=== PATIENT | male | born 1930 | race Caucasian/White ===

== ENCOUNTER 2016-07-10 11:41 | Emergency (ER) | payer MEDICARE, OTHER ==
[~2016-07-10] VITALS: Wt 89.1 kg
[~2016-07-10 11:41] MED LIST: ALBU18HF INHALATION; APIX2.5T PO; ATOR10TA65 PO; CARV12.579 PO; DIGO125T PO; FURO20TA3 PO; ISOS30TA5 PO; NIT4 SL; OMEP40CA6 PO; OXYB5TAB22 PO; SPIR25TA PO
[2016-07-10] MEDS ORDERED: SOD CHLORIDE 0.9% 1,000 ML IV STA (11:59)
[2016-07-10] MEDS ORDERED: ONDANSETRON 4 MG INJ IV STA (11:59)
[2016-07-10] MEDS ORDERED: morphine 4 MG/ML VIAL IV STA (11:59)
[2016-07-10 12:11] LABS: ADD SCAN DIFF NO
[2016-07-10 12:22] LABS: ABNORMAL IP MESSAGE 1; ALBUMIN 4.1 g/dl (3.3-4.9); BASOPHILS % 0.3 % (0.0-2.0); CHLORIDE 99 mmol/L (97-110); EOSINOPHILS # 0.1 10^3/ul (0.0-0.5); EOSINOPHILS % 0.9 % (0.0-7.0); HEMATOCRIT 39.9 % (42.0-52.0); HEMOGLOBIN 12.9 g/dl (14.0-18.0); LYMPHOCYTES % 51.2 % (15.0-51.0); MEAN CORPUSCULAR HEMOGLOBIN 27.6 pg (29.0-33.0); MEAN CORPUSCULAR HGB CONC 32.3 g/dl (32.0-37.0); MEAN CORPUSCULAR VOLUME 85.4 fl (82.0-101.0); MONOCYTE # 0.7 10^3/ul (0.3-0.9); MONOCYTES % 5.6 % (0.0-11.0); NEUTROPHIL # 4.9 10^3/ul (1.6-7.5); NEUTROPHILS % 41.7 % (39.0-77.0); PLATELET COUNT 155 10^3/UL (140-415); RED BLOOD COUNT 4.67 10^6/ul (4.70-6.10); RED CELL DISTRIBUTION WIDTH 14.5 % (11.5-14.5); WHITE BLOOD COUNT 11.7 10^3/ul (4.8-10.8)
[2016-07-10 12:23] LABS: POTASSIUM 4.4 mmol/L (3.5-5.1); SODIUM 137 mmol/L (135-144)
[2016-07-10 12:25] LABS: ALANINE AMINOTRANSFERASE 29 IU/L (13-69); ALBUMIN/GLOBULIN RATIO 1.13; ALKALINE PHOSPHATASE 106 IU/L (42-121); ANION GAP 17 (8-16); ASPARTATE AMINO TRANSFERASE 25 IU/L (15-46); BILIRUBIN,INDIRECT 0.4 mg/dl (0-1.1); BILIRUBIN,TOTAL 0.4 mg/dl (0.2-1.3); BLOOD UREA NITROGEN 34 mg/dl (7-20); CALCIUM 8.6 mg/dl (8.4-10.2); CARBON DIOXIDE 25 mmol/L (21-31); CREATININE 0.98 mg/dl (0.61-1.24); GLUCOSE 103 mg/dl (70-220); TOTAL PROTEIN 7.7 g/dl (6.1-8.1)
[2016-07-10 12:38] LABS: TROPONIN-I < 0.012 ng/ml (0.00-0.12)
[2016-07-10] MEDS ORDERED: BENA5TAB2 PO (12:47)
[2016-07-10 13:10] LABS: ADD UMIC YES; URINE BILIRUBIN (Dip) NEGATIVE (NEGATIVE); URINE BLOOD (Dip) TRACE (NEGATIVE); URINE COLOR LT. YELLOW (YELLOW); URINE GLUCOSE (Dip) NEGATIVE (NEGATIVE); URINE KETONES (Dip) NEGATIVE (NEGATIVE); URINE LEUKOCYTE ESTERASE (Dip) NEGATIVE (NEGATIVE); URINE NITRITE (Dip) NEGATIVE (NEGATIVE); URINE TOTAL PROTEIN (Dip) NEGATIVE (NEGATIVE); URINE UROBILINOGEN (Dip) 0.2 E.U./dL (0.1-1.0)
--- NOTE | 2016-07-10 13:30 | RADRPT ---
PROCEDURE: CT Cervical Spine. CLINICAL INDICATION: Headache and dizziness. TECHNIQUE: A CT of the cervical spine was performed on a GE [employer] 64-slice CT scanner utilizi ng high-resolution axial imaging from the skull base through the cervical thoracic junction. Sagitt al, coronal, and multiplanar reformatted images were made. CTD I: 27.72 mGy and DLP: 557.57 mGy-cm One or more of the following dose reduction techniques were used: Automated exposure control. Adjustment of the mA and/or kV according to patient size. Use of iterative reconstruction technique. COMPARISON: None FINDINGS: There is straightening of the cervical lordosis. There is a stepwise trace retrolisthesis of C4 on C5, C5 on C6, and C6 on C7 likely on degenerative basis. There is no acute fracture or traumatic mal alignment. The posterior elements are normally aligned. The surrounding soft tissues are normal in appearance. There are mild to moderate degenerative changes at the atlantoaxial joint. C2-C3: The disk height is maintained. There is prominent right-sided uncovertebral spurring with s evere right and mild to moderate left facet arthropathy. The combination of the finding result in m oderate right neural foraminal stenosis. The central canal and left neural foramen are adequately p atent. C3-C4: There is mild disk height loss. Disk osteophyte complex, prominent left-sided uncovertebral spurring, severe left and moderate right facet arthropathy are seen at this level. There is modera te left neural foraminal stenosis. There is mild central canal and right neural foraminal stenosis. C4-C5: There is moderate disk height loss with discogenic endplate changes. Disk osteophyte complex , prominent right-sided uncovertebral spurring and moderate facet arthropathy are seen at this level . There is moderate to severe right and minimal left neural foraminal stenosis. There is mild to m oderate central canal stenosis. C5-C6: There is moderate to severe disk height loss with discogenic endplate changes. Disk osteoph yte complex, prominent uncovertebral spurring left being more prominent with mild facet arthropathy are seen at this level. There is severe left and moderate to severe right neural foraminal stenosis . There is moderate central canal stenosis. C6-C7: There is moderate to severe disk height loss with discogenic endplate changes. Disk osteoph yte complex, prominent uncovertebral spurring with mild to moderate facet arthropathy are seen at th is level. There is severe right and moderate to severe left neural foraminal stenosis. There is mi ld central canal stenosis. C7-T1: The disk height is maintained. The central canal and bilateral neural foramina are adequate ly patent. IMPRESSION: 1. No acute fracture or traumatic malalignment. 2. Multilevel cervical spondylosis at C4-C5 through C6-C7 with associated moderate to severe bilate ral neural foraminal stenosis, as detailed above. 3. Moderate central canal stenosis at C5-C6. 4. Multilevel stepwise mild retrolisthesis at C4-C5 through C6-C7 likely on degenerative basis. RPTAT: BB .Vicki Sloan MD, MD Date Time Electronically viewed and signed by .Vicki Sloan MD, on 07/10/2016 13:30 .O/
--- NOTE | 2016-07-10 13:33 | RADRPT ---
PROCEDURE: CT Brain without contrast. CLINICAL INDICATION: Dizziness and head pressure. TECHNIQUE: A CT of the brain was performed on a multidetector CT scanner utilizing axial sections from the skull base through the vertex without contrast. Images were reviewed on a high-resolution [employer] workstation. Exam CTDI = 49.70 mGy and the DLP = 715.55 mGy-cm. One or more of the following dose reduction techniques were used: Automated exposure control Adjustment of the mA and/or kV according to patient size. Use of iterative reconstruction technique. COMPARISON: Head CT 10/18/2014 FINDINGS: There is age appropriate mild generalized volume loss. There is no evidence of intracranial hemorrh age, mass effect or midline shift. No abnormal intra-axial or extra-axial fluid collections are see n. The density of the brain is normal and the silva/white matter differentiation is well preserved. Mild patchy diffuse deep white matter microangiopathic ischemic change is seen. The osseous stru ctures and visualized paranasal sinuses are unremarkable. Vascular calcifications are identified. IMPRESSION: 1. No intracranial hemorrhage, mass effect or midline shift. 2. Mild microangiopathic ischemic change. 3. Intracranial atherosclerosis. RPTAT: BB .Vicki Sloan MD, MD Date Time Electronically viewed and signed by .Vicki Sloan MD, on 07/10/2016 13:33 .O/
[2016-07-10 13:38] LABS: BACTERIA,URINE FEW; URINE RBCS 0-2 /HPF (0)
[2016-07-10 13:58] VITALS: BP 106/74; PULSE 65; RESP 16; TEMP 98.8
[2016-07-10] MEDS ORDERED: ONDA4TAB14 PO (14:03)
--- NOTE | 2016-07-10 14:05 | ERD ---
ER Documentation Chief Complaint Date/Time DATE: 07/10/16 TIME: 14:05 Chief Complaint ABDOMINAL PAIN MILD WITH NAUSEA AND CONSITPATION FOR 3 DAYS. ACID REFLUX HPI Patient is an 86-year-old male with coronary disease and hypertension who presents with headache and neck pain. He had headache and neck pain and bilateral hand stiffness. He also felt dizzy. He has had the symptoms for the past 3 days. He tried Tylenol which helps. He has no fevers. Upon review of old medical records this is the patient's fifth visit to the ER since 2006. He does not remember the name of his primary doctor. ROS All systems reviewed and are negative except as per history of present illness. Medications Home Meds Active Scripts Ondansetron (Ondansetron Odt) 4 Mg Tab.rapdis, 4 MG PO Q6H Y for NAUSEA AND/OR VOMITING, #30 TAB Prov:WILIAN WIGGINS MD 07/10/16 Reported Medications Benazepril Hcl* (Benazepril Hcl*) 5 Mg Tablet, 5 MG PO DAILY, #30 TAB 07/10/16 Nitroglycerin* (Nitrostat*) 0.4 Mg Tab.subl, 0.4 MG SL Q5MIN Y for CHEST PAIN, BOTTLE 09/06/15 Omeprazole* (Omeprazole*) 40 Mg Capsule.dr, 40 MG PO DAILY, CAP 09/06/15 Albuterol Sulfate* (Ventolin HFA*) 18 Gm Hfa.aer.ad, 2 PUFF INHALATION Q4H, #1 INHALER 09/06/15 Oxybutynin Chloride* (Ditropan* XL) 5 Mg Tabsr, 5 MG PO DAILY, TAB.SA 09/04/15 Isosorbide Mononitrate* (Isosorbide Mononitrate*) 30 Mg Tab.er.24h, 30 MG PO DAILY, TAB 09/04/15 Digoxin* (Digoxin*) 0.125 Mg Tab, 0.125 MG PO DAILY, #30 TAB 09/04/15 Carvedilol* (Carvedilol*) 12.5 Mg Tablet, 12.5 MG PO DAILY, #60 TAB 09/04/15 Apixaban* (Eliquis*) 2.5 Mg Tablet, 2.5 MG PO BID, TAB 02/20/15 Spironolactone* (Aldactone*) 25 Mg Tablet, 25 MG PO DAILY, TAB 10/18/14 Furosemide* (Furosemide*) 20 Mg Tablet, 20 MG PO BID, TAB 10/18/14 Atorvastatin Calcium (Atorvastatin Calcium) 10 Mg Tab, 10 MG PO HS, TAB 10/18/14 Allergies Allergies: Coded Allergies: No Known Drug Allergy (Verified Allergy, Mild, 09/04/15) PMhx/Soc History of Surgery: Yes (prostate, bilateral knee and nose surgery) Anesthesia Reaction: No Hx Neurological Disorder: No Hx Respiratory Disorders: Yes (asthma) Hx Cardiac Disorders: Yes (htn, afib, chf) Hx Psychiatric Problems: No Hx Miscellaneous Medical Probl: Yes (anemia, nasal ca) Hx Alcohol Use: Yes (occasional) Hx Substance Use: No Hx Tobacco Use: No Smoking Status: Never smoker FmHx Family History: No diabetes Physical Exam Vitals Vital Signs Date Time Temp Pulse Resp B/P Pulse Ox O2 Delivery O2 Flow Rate FiO2 07/10/16 13:58 98.8 65 16 106/74 99 Room Air 07/10/16 12:00 98.8 71 20 119/62 100 Room Air 07/10/16 11:46 98.8 64 20 130/72 98 Physical Exam Const: No acute distress Head: Atraumatic Eyes: Normal Conjunctiva ENT: Normal External Ears, Nose and Mouth. Neck: Full range of motion..~ No meningismus. Resp: Clear to auscultation bilaterally Cardio: Irregular rate without murmur Abd: Soft, non tender, non distended. Normal bowel sounds Skin: No petechiae or rashes Back: No midline or flank tenderness Ext: No cyanosis, or edema Neur: Awake and alert, cranial nerves II through XII are intact, strength is 5 out of 5 in all 4 extremities, no pronator drift, no slurred speech Psych: Normal Mood and Affect Result Diagram: 07/10/16 1200 07/10/16 1200 Results 24 hrs Laboratory Tests Test 07/10/16 12:00 07/10/16 12:05 Alanine Aminotransferase (ALT/SGPT) 29IU/L Albumin 4.1g/dl Albumin/Globulin Ratio 1.13 Alkaline Phosphatase 106IU/L Anion Gap 17 Aspartate Amino Transf (AST/SGOT) 25IU/L Basophils # 0.010^3/ul Basophils % 0.3% Blood Urea Nitrogen 34mg/dl Calcium Level 8.6mg/dl Carbon Dioxide Level 25mmol/L Chloride Level 99mmol/L Creatinine 0.98mg/dl Direct Bilirubin 0.00mg/dl Eosinophils # 0.110^3/ul Eosinophils % 0.9% Globulin 3.60g/dl Glucose Level 103mg/dl Hematocrit 39.9% Hemoglobin 12.9g/dl Indirect Bilirubin 0.4mg/dl Lipase 101U/L Lymphocytes # 6.010^3/ul Lymphocytes % 51.2% Mean Corpuscular Hemoglobin 27.6pg Mean Corpuscular Hemoglobin Concent 32.3g/dl Mean Corpuscular Volume 85.4fl Mean Platelet Volume 12.0fl Monocytes # 0.710^3/ul Monocytes % 5.6% Neutrophils # 4.910^3/ul Neutrophils % 41.7% Nucleated Red Blood Cells # 0.010^3/ul Nucleated Red Blood Cells % 0.0/100WBC Platelet Count 27138^3/UL Potassium Level 4.4mmol/L Red Blood Count 4.6710^6/ul Red Cell Distribution Width 14.5% Sodium Level 137mmol/L Total Bilirubin 0.4mg/dl Total Protein 7.7g/dl Troponin I < 0.012ng/ml White Blood Count 11.710^3/ul Urine Bacteria FEW Urine Bilirubin NEGATIVE Urine Clarity CLEAR Urine Color LT. YELLOW Urine Epithelial Cells FEW Urine Glucose NEGATIVE% Urine Hemoglobin TRACE Urine Ketones NEGATIVE Urine Leukocyte Esterase NEGATIVE Urine Microscopic RBC 0-2/HPF Urine Microscopic WBC 0-2/HPF Urine Nitrite NEGATIVE Urine Specific [place] 1.010 Urine Total Protein NEGATIVE Urine Urobilinogen 0.2 E.U./dL Urine pH 5.5 Current Medications Medications (Trade) Dose Ordered Sig/Jenny Route PRN Reason Start Time Stop Time Status Last Admin Dose Admin Sodium Chloride (NS) 1,000 ml @ 1,000 mls/hr Q1H STAT IV 07/10/16 11:59 07/10/16 12:58 DC 07/10/16 12:18 Morphine Sulfate (morphine) 4 mg ONCE STAT IV 07/10/16 11:59 07/10/16 12:00 DC 07/10/16 12:19 Ondansetron HCl (Zofran Inj) 4 mg ONCE STAT IV 07/10/16 11:59 07/10/16 12:00 DC 07/10/16 12:19 Procedures/MDM EKG read by me: Rate/Rhythm: Atrial fibrillation a rate of 72 Intervals: Normal Impression: Atrial fibrillation without evidence of ischemia CT head negative for acute bleed per radiology. CT cervical spine shows DJD but no fracture or dislocation per radiology. Patient is an 86-year-old male who presents with headache and neck pain as well as dizziness. CT scan of the head and neck were basically normal. EKG shows atrial fibrillation at a controlled rate without ischemia. Laboratory studies show mild anemia but he does not require transfusion. I doubt meningitis, intrarenal hemorrhage, or intracranial mass. I doubt stroke. I doubt sepsis or serious bacterial infection. At this point I believe outpatient management is appropriate. However the patient will need close follow-up with his primary doctor within 24-48 hours for reevaluation. He will be given a prescription for Zofran for symptomatically relief of nausea and vomiting. Departure Diagnosis: Primary Impression: Vomiting Vomiting type: unspecified Vomiting Intractability: non-intractable Nausea presence: with nausea Qualified Code: R11.2 - Non-intractable vomiting with nausea, unspecified vomiting type Additional Impressions: Headache Headache type: unspecified Headache chronicity pattern: acute headache Intractability: not intractable Qualified Code: R51 - Acute nonintractable headache, unspecified headache type Abdominal pain Abdominal location: epigastric Qualified Code: R10.13 - Epigastric pain Condition: Fair Patient Instructions: Abdominal Pain, Self-Care for Headaches, Vomiting (6Y- Adult) Referrals: Your doctor Additional Instructions: Llame al doctor MAANA y dimas nitza TEE PARA DENTRO DE 1-2 PURDY.Dgale a la secretaria que nosotros le instruimos hacer esta tee.Avise o llame si hurtado condicin se empeora antes de la tee. Regresa aqui si peor o no mejor. WILIAN WIGGINS MD Jul 10, 2016 14:05
== END 2016-07-10 14:25 | disposition home or self-care (01) ==
LOC: E/R 11:41
DX: R11.2 Nausea with vomiting, unspecified (principal); J45.909 Unspecified asthma, uncomplicated; I10 Essential (primary) hypertension; R51 Headache; R10.13 Epigastric pain; I50.9 Heart failure, unspecified; Z85.22 Personal history of malignant neoplasm of nasal cavities, middle ear, and accessory sinuses
CPT/HCPCS: 36415; 70450; 72125; 80053; 81001; 83690; 84484; 85025; 93005; 96374; 96375; 99285; J2270; J2405; J7030; 81003

== ENCOUNTER 2017-02-17 08:32 | Inpatient (IN) | END 2017-02-20 21:00 | disposition home or self-care (01) | DRG 393 | DX: K65.4 Sclerosing mesenteritis (principal); I50.43 Acute on chronic combined systolic (congestive) and diastolic (congestive) heart failure; J18.9 Pneumonia, unspecified organism; I11.0 Hypertensive heart disease with heart failure; I48.91 Unspecified atrial fibrillation; D64.9 Anemia, unspecified; I42.9 Cardiomyopathy, unspecified; F17.210 Nicotine dependence, cigarettes, uncomplicated; J45.909 Unspecified asthma, uncomplicated; Z90.79 Acquired absence of other genital organ(s); Z79.01 Long term (current) use of anticoagulants; Z23 Encounter for immunization ==